=== PATIENT | female | born 1990 | race Caucasian/White ===

== ENCOUNTER 2017-04-17 17:30 | Emergency (ER) | payer OTHER ==
[~2017-04-17] VITALS: Ht 165.1 cm; Wt 92.5 kg
[2017-04-17 18:12] VITALS: BP 141/83; Ht 165.1 cm; Wt 92.5 kg
== END 2017-04-17 21:59 | disposition home or self-care (01) ==
LOC: ED 17:30
DX: J06.9 Acute upper respiratory infection, unspecified (principal); S33.9XXA Sprain of unspecified parts of lumbar spine and pelvis, initial encounter; X58.XXXA Exposure to other specified factors, initial encounter; Y93.89 Activity, other specified; Y92.89 Other specified places as the place of occurrence of the external cause; Y99.8 Other external cause status

== ENCOUNTER 2017-08-27 10:47 | Emergency (ER) | payer OTHER ==
[~2017-08-27] VITALS: Ht 165.1 cm; Wt 96.2 kg
[2017-08-27 11:09] VITALS: Ht 165.1 cm; Wt 96.2 kg
[2017-08-27 11:42] LABS: CALCIUM 9.1 mg/dL (8.5-10.1); CARBON DIOXIDE 27.3 mmol/L (21-32); CHLORIDE SERUM 105 mmol/L (98-107); CREATININE SERUM 0.8 mg/dL (0.6-1.0); GFR1 > 60 mL/min; GLUCOSE SERUM 99 mg/dL (74-106); POTASSIUM SERUM 3.8 mmol/L (3.5-5.1); SODIUM SERUM 139 mmol/L (136-145)
[2017-08-27 11:47] LABS: ALKALINE PHOSPHATASE 58 U/L (46-116); ALT/SGPT 15 U/L (14-59); AST/SGOT 12 U/L (15-37); BASOPHIL % 0.5 % (0-2); BILIRUBIN TOTAL 0.2 mg/dL (0.20-1.00); LIPASE 98 IU/L (73-393); PLATELET COUNT 242 x10^3mcL (130-400); TOTAL PROTEIN, SERUM 7.7 g/dL (6.4-8.2)
[2017-08-27 11:48] LABS: RED CELL DISTRIBUTION WIDTH 16.1 % (11.5-14.5)
[2017-08-27 11:54] LABS: ALBUMIN 3.3 g/dL (3.4-5.0)
[2017-08-27 13:28] VITALS: BP 116/50
== END 2017-08-27 13:28 | disposition home or self-care (01) ==
LOC: ED 10:47
PROVIDERS: Emergency Medicine
DX: O99.611 Diseases of the digestive system complicating pregnancy, first trimester (principal); Z3A.09 9 weeks gestation of pregnancy
CPT/HCPCS: J1200; J7030